=== PATIENT | female | born 1995 | race Two or more races ===

== ENCOUNTER 2023-04-10 00:59 | Emergency (ER) | payer OTHER ==
[~2023-04-10] VITALS: Ht 157.5 cm; Wt 56.7 kg
[2023-04-10 04:20] LABS: HEMATOCRIT 42.5 % (36.0-45.00); HEMOGLOBIN 14.4 g/dL (12.0-15.00); MEAN CELL VOLUME 89.2 fL (80.00-100.00); MEAN CORPUSCULAR HEMOGLOBIN 30.3 pg (27.00-32.0); PLATELET COUNT 253 K/uL (150-450); RED BLOOD COUNT 4.77 M/uL (4.00-6.00); RED CELL DISTRIBUTION WIDTH 12.9 % (11.5-14.5)
[2023-04-10 04:33] LABS: CALCIUM 8.8 mg/dL (8.5-10.1); CREATININE SERUM 0.68 mg/dL (0.55-1.02); GFR 105.42; POTASSIUM 3.79 mEq/L (3.5-5.1)
[2023-04-10 07:04] LABS: URINE APPEARANCE Clear; URINE BILIRRUBIN Negative (NEGATIVE); URINE BLOOD Negative; URINE COLOR Yellow; URINE GLUCOSE Negative (NEGATIVE); URINE LEUKOCYTE Small; URINE NITRATE Negative; URINE PROTEIN Trace (NEGATIVE)
[2023-04-10 07:06] LABS: URINE RBC 11.7 uL (0.0-20.8); URINE WBC 43.7 uL (0.0-23.2)
== END 2023-04-10 10:58 | disposition home or self-care (01) ==
LOC: ER 00:59
PROVIDERS: General Practice
DX: R10.13 Epigastric pain (principal); Z91.013 Allergy to seafood; R11.10 Vomiting, unspecified